=== PATIENT | male | born 1990 | race Two or more races ===

== ENCOUNTER 2023-10-18 01:20 | Emergency (ER) | payer OTHER ==
[~2023-10-18] VITALS: Ht 167.6 cm; Wt 66.0 kg
[2023-10-18 01:25] VITALS: O2SAT 100
[2023-10-18 02:14] LABS: BASOPHILS % 0.3 % (0.0-2.0); EOSINOPHILS % 0.1 % (0.0-5.0); HEMATOCRIT. 42.3 % (42.0-52.0); HEMOGLOBIN. 14.5 g/dL (14.0-18.0); LYMPHOCYTES % 12.3 % (20.0-50.0); MEAN CORPUSCULAR HEMOGLOBIN 30.4 pg (28.0-32.0); MEAN CORPUSCULAR HGB CONC 34.3 g/dL (31.0-37.0); MEAN CORPUSCULAR VOLUME 88.6 fL (80.0-94.0); MEAN PLATELET VOLUME 8.6 fl (7.4-10.4); MONOCYTES % 6.4 % (2.0-8.0); NEUTROPHILS % 80.9 % (40.0-76.0); PLATELET 298 x1000/uL (130-400); RED BLOOD CELL COUNT 4.77 mill/uL (4.7-6.1); RED CELL DISTRIBUTION WIDTH 12.7 % (11.6-14.6); WHITE BLOOD COUNT 24.1 x1000/uL (4.5-11.0)
[2023-10-18] MEDS: MORPHINE SULFATE 4 MG/ML INJ (FOR IV/IM USE) IV STA (02:21)
[2023-10-18] MEDS: SODIUM CHLORIDE 0.9% 1,000 ML IV ONE (02:21)
[2023-10-18] MEDS: ONDANSETRON HCL 4MG/2ML INJ IV STA (02:21)
[2023-10-18 02:23] LABS: CHLORIDE 105 mEq/L (98-107); POTASSIUM 3.6 mEq/L (3.5-5.1); SODIUM 140 mEq/L (136-145)
[2023-10-18 02:24] LABS: CARBON DIOXIDE 27 mEq/L (21-32)
[2023-10-18 02:25] LABS: CALCIUM 9.2 mg/dL (8.7-10.4)
[2023-10-18 02:26] LABS: PARTIAL THROMBOPLASTIN TIME 22.7 sec (23.4-31.0); PROTHROMBIN TIME 11.3 sec (9.6-11.0)
[2023-10-18 02:30] LABS: GLUCOSE 138 mg/dL (70-105); UREA NITROGEN BLOOD 11 mg/dL (9-23)
[2023-10-18 02:31] LABS: ALANINE AMINOTRANSFERASE 25 IU/L (10-49); ALBUMIN 4.5 g/dL (3.2-4.8); ASPARTATE AMINOTRANSFERASE 27 IU/L (<34)
[2023-10-18 02:32] LABS: BILIRUBIN DIRECT 0.2 mg/dL (<=3.0); BILIRUBIN TOTAL 0.6 mg/dL (0.1-1.0)
[2023-10-18 03:52] VITALS: BP 126/70; PULSE 84; RESP 24; TEMP 98.3
[2023-10-18] MEDS ORDERED: IOHEXOL-300 100 ML BOTTLE ONE (05:45)
== END 2023-10-18 03:50 | disposition short-term general hospital (02) ==
LOC: ER 01:20
DX: S36.113A Laceration of liver, unspecified degree, initial encounter (principal); S36.899A Unspecified injury of other intra-abdominal organs, initial encounter; M54.2 Cervicalgia; V49.50XA Passenger injured in collision with unspecified motor vehicles in traffic accident, initial encounter; Y93.89 Activity, other specified; Y92.89 Other specified places as the place of occurrence of the external cause; Y99.8 Other external cause status
CPT/HCPCS: 99291; 70450; 96374; 71045; 96361; 96375; 80076; 80048; 83690; 85025; 85610; 85730; 86850; 86900; 86901; 86920; 36415; 71260; 72125; 74177; Q9967; J2405; J2270; J7030; P9016